=== PATIENT | male | born 1990 | race Caucasian/White ===

== ENCOUNTER 2017-06-02 08:40 | Emergency (ER) | payer BC, MEDICAID, OTHER ==
[2017-06-02] MEDS ORDERED: Ondansetron 4 MG/2 ML SDV IVPUSH PRN (08:56)
[2017-06-02] MEDS ORDERED: Lactated Ringers 1,000 ML IV SCH (09:00)
[2017-06-02] MEDS ORDERED: Insulin Regular, Human 100 Units/ML 10 ML Vial IV ONE (09:13)
[2017-06-02 09:22] LABS: CHLORIDE,CL 90 mEq/L (98-106); SODIUM,NA 131 mEq/L (136-145)
[2017-06-02] MEDS ORDERED: Sodium Chloride 0.9% 50 ML ONE (09:27)
[2017-06-02 09:35] LABS: O2 DELIVERY DEVICE ROOM AIR; PCO2 ARTERIAL 25 mm/Hg0 (35-45)
[2017-06-02 09:36] LABS: BICARBONATE,ARTERIAL 8.3 mm/L (22.0-26.0); O2 SATURATION ARTERIAL 96 % (95-98); PO2 ARTERIAL 106 mm/Hg (80-100)
[2017-06-02 10:14] VITALS: BP 122/66
[2017-06-02] MEDS ORDERED: Sodium Chloride 0.9% 1,000 ML IV SCH (10:15)
--- NOTE | 2017-06-02 10:44 | EDM.PDOC ---
ED HPI GENERAL MEDICAL PROBLEM - General Chief Complaint: Gastrointestinal Problem Stated Complaint: nausea, vomiting, increased BS Time Seen by Provider: 06/02/17 08:55 Source of Information: Reports: Patient - History of Present Illness INITIAL COMMENTS - FREE TEXT/NARRATIVE: Patient is a type 1 diabetic, and has not taken his unsulin in several days. Has been having severe N/V for 24 hours. Onset: Today, Gradual Duration: Hour(s):, Day(s): Severity: Severe Improves with: Reports: None Worsens with: Reports: None Generalized Pain Score (Numeric/FACES): 7 - Related Data Allergies Allergy/AdvReac Type Severity Reaction Status Date / Time No Known Allergies Allergy Verified 09/12/14 23:14 Home Meds: Home Meds Insulin Glarg,Human.Rec.Analog [Lantus] 35 units SQ BEDTIME 09/12/14 [History] Insulin Lispro [HumaLOG] 1 unit SQ ASDIRECTED 09/12/14 [History] Past Medical History Endocrine/Metabolic History: Reports: Diabetes, Type I Social & Family History - Tobacco Use Smoking Status *Q: Current Every Day Smoker Years of Tobacco use: 10 Packs/Tins Daily: 1 - Caffeine Use Caffeine Use: Reports: None - Recreational Drug Use Recreational Drug Use: Yes Drug Use in Last 12 Months: Yes Recreational Drug Type: Reports: Marijuana/Hashish, Methamphetamine ED ROS GENERAL - Review of Systems Review Of Systems: See Below Constitutional: Reports: Malaise, Weakness, Fatigue HEENT: Reports: No Symptoms Respiratory: Reports: No Symptoms Cardiovascular: Reports: No Symptoms Endocrine: Reports: High Glucose : Reports: No Symptoms Musculoskeletal: Reports: No Symptoms Skin: Reports: No Symptoms Neurological: Reports: No Symptoms Psychiatric: Reports: No Symptoms Hematologic/Lymphatic: Reports: No Symptoms ED EXAM, GI/ABD - Physical Exam Exam: See Below Text/Narrative:: A thin 27 year old male with numerous abrasions and bruises noted, He is voming continuously. Serum glucose is 680 Exam Limited By: Uncooperative General Appearance: Alert Ears: Normal External Exam Nose: Normal Inspection Throat/Mouth: Normal Inspection Head: Atraumatic Neck: Normal Inspection Respiratory/Chest: No Respiratory Distress Cardiovascular: Normal Peripheral Pulses GI/Abdominal: Normal Bowel Sounds Neurological: Alert, Oriented Skin Exam: Warm Course - Vital Signs Last Recorded V/S: Last Vital Signs Temp 97.7 F 07/09/17 08:51 Pulse 114 H 06/02/17 08:51 Resp 16 06/02/17 08:51 BP 122/66 06/02/17 10:13 Pulse Ox 100 06/02/17 10:13 - Orders/Labs/Meds Orders: Active Orders 24 hr Category Date Time Status Insulin Regular, Human [NovoLIN R] 100 unit Med 06/02/17 10:15 Active Sodium Chloride 0.9% [Normal Saline] 99 ml IV TITRATE Ondansetron [Zofran] Med 06/02/17 08:56 Active 4 mg IVPUSH Q6H PRN Sodium Chloride 0.9% [Normal Saline] 1,000 ml Med 06/02/17 10:15 Active IV ASDIRECTED Medication Orders Insulin Human Regular 100 unit (/ Sodium Chloride) 100 mls @ 3 mls/hr IV TITRATE JERAMIE; 3 UNITS/HR PRN Reason: Protocol Last Admin: 06/02/17 09:45 Dose: 3 units/hr, 3 mls/hr Sodium Chloride (Normal Saline) 1,000 mls @ 999 mls/hr IV ASDIRECTED JERAMIE Last Admin: 06/02/17 10:12 Dose: 999 mls/hr Ondansetron HCl (Zofran) 4 mg IVPUSH Q6H PRN PRN Reason: Nausea Last Admin: 06/02/17 09:08 Dose: 4 mg Labs: Laboratory Tests 06/02/17 06/02/17 06/02/17 Range/Units 08:55 08:55 08:55 WBC 20.8 H* (5.0-10.0) 10^3/uL RBC 5.56 (4.50-6.00) 10^6/uL Hgb 16.7 (14.0-18.0) g/dL Hct 48.1 (40.0-54.0) % MCV 86.5 (82.0-94.0) fL MCH 30.0 (27.0-32.0) pg MCHC 34.7 (33.0-38.0) g/dL RDW Coeff of Khari 11.6 (11.0-15.0) % Plt Count 327 (150-400) 10^3/uL Add Manual Diff Yes Neutrophils % (Manual) 92 H (35-85) % Lymphocytes % (Manual) 4 L (21-55) % Monocytes % (Manual) 4 (2-12) % Absolute Neutrophils 19.14 H (1.80-7.00) 10^3/uL Lymphocytes # (Manual) 0.83 L (1.00-4.80) 10^3/uL Monocytes # (Manual) 0.83 H (0.00-0.80) 10^3/uL Toxic Granulation 1+ slight H (NOT SEEN) ABG pH (7.35-7.45) ABG pCO2 (35-45) mm/Hg0 ABG pO2 (80-100) mm/Hg ABG HCO3 (22.0-26.0) mm/L ABG O2 Saturation (95-98) % ABG Base Excess (-2.0-3.0) O2 Delivery Device Sodium 131 L (136-145) mEq/L Potassium 6.3 H* D (3.5-5.0) mEq/L Chloride 90 L (98-106) mEq/L Carbon Dioxide 11 L (21-32) mmol/L BUN 34 H (7-18) mg/dL Creatinine 2.0 H D (0.7-1.3) mg/dL Est Cr Clr Drug Dosing 52.92 mL/min Estimated GFR (MDRD) 40 L (>=60) mL/min Glucose 680 H* D (75-99) mg/dL Calcium 9.6 (8.4-10.1) mg/dL Magnesium 2.6 H (1.8-2.4) mg/dL Total Bilirubin 0.9 (0.0-1.0) mg/dL AST 24 (15-37) U/L ALT 36 (12-78) U/L Alkaline Phosphatase 133 H (46-116) U/L C-Reactive Protein < 0.2 L (0.2-0.8) mg/dL Total Protein 9.0 H (6.4-8.2) g/dL Albumin 5.1 H (3.4-5.0) g/dL Urine Color (YELLOW) Urine Appearance (CLEAR) Urine pH (4.5-8.0) Ur Specific [place] (1.003-1.020) Urine Protein (NEGATIVE) mg/dL Urine Glucose (UA) (NEGATIVE) mg/dL Urine Ketones (NEGATIVE) mg/dL Urine Occult Blood (NEGATIVE) Urine Nitrite (NEGATIVE) Urine Bilirubin (NEGATIVE) Urine Urobilinogen (0.2-1.0) EU/dL Ur Leukocyte Esterase (NEGATIVE) Urine RBC (0-5) /HPF Urine WBC (0-5) /HPF Ur Squamous Epith Cells (NOT SEEN) /HPF Urine Opiates Screen Negative (NEGATIVE) Ur Oxycodone Screen Negative (NEGATIVE) Urine Methadone Screen Negative (NEGATIVE) Ur Barbiturates Screen Negative (NEGATIVE) U Tricyclic Antidepress Negative (NEGATIVE) Ur Phencyclidine Scrn Negative (NEGATIVE) Ur Amphetamine Screen Negative (NEGATIVE) U Methamphetamines Scrn Positive H (NEGATIVE) Urine MDMA Screen Negative (NEGATIVE) U Benzodiazepines Scrn Negative (NEGATIVE) Urine Cocaine Screen Negative (NEGATIVE) U Marijuana (THC) Screen Negative (NEGATIVE) 06/02/17 06/02/17 06/02/17 Range/Units 08:55 09:12 10:10 WBC (5.0-10.0) 10^3/uL RBC (4.50-6.00) 10^6/uL Hgb (14.0-18.0) g/dL Hct (40.0-54.0) % MCV (82.0-94.0) fL MCH (27.0-32.0) pg MCHC (33.0-38.0) g/dL RDW Coeff of Khari (11.0-15.0) % Plt Count (150-400) 10^3/uL Add Manual Diff Neutrophils % (Manual) (35-85) % Lymphocytes % (Manual) (21-55) % Monocytes % (Manual) (2-12) % Absolute Neutrophils (1.80-7.00) 10^3/uL Lymphocytes # (Manual) (1.00-4.80) 10^3/uL Monocytes # (Manual) (0.00-0.80) 10^3/uL Toxic Granulation (NOT SEEN) ABG pH 7.14 L (7.35-7.45) ABG pCO2 25 L (35-45) mm/Hg0 ABG pO2 106 H (80-100) mm/Hg ABG HCO3 8.3 L (22.0-26.0) mm/L ABG O2 Saturation 96 (95-98) % ABG Base Excess -21.0 L (-2.0-3.0) O2 Delivery Device Room air Sodium 133 L (136-145) mEq/L Potassium 5.6 H (3.5-5.0) mEq/L Chloride 94 L (98-106) mEq/L Carbon Dioxide 11 L (21-32) mmol/L BUN 35 H (7-18) mg/dL Creatinine 1.7 H (0.7-1.3) mg/dL Est Cr Clr Drug Dosing 62.26 mL/min Estimated GFR (MDRD) 48 L (>=60) mL/min Glucose 566 H* (75-99) mg/dL Calcium 9.0 (8.4-10.1) mg/dL Magnesium (1.8-2.4) mg/dL Total Bilirubin (0.0-1.0) mg/dL AST (15-37) U/L ALT (12-78) U/L Alkaline Phosphatase (46-116) U/L C-Reactive Protein (0.2-0.8) mg/dL Total Protein (6.4-8.2) g/dL Albumin (3.4-5.0) g/dL Urine Color Yellow (YELLOW) Urine Appearance Clear (CLEAR) Urine pH 5.0 (4.5-8.0) Ur Specific [place] 1.024 H (1.003-1.020) Urine Protein Trace H (NEGATIVE) mg/dL Urine Glucose (UA) 500 H (NEGATIVE) mg/dL Urine Ketones >=160 H (NEGATIVE) mg/dL Urine Occult Blood Small H (NEGATIVE) Urine Nitrite Negative (NEGATIVE) Urine Bilirubin Small H (NEGATIVE) Urine Urobilinogen 0.2 (0.2-1.0) EU/dL Ur Leukocyte Esterase Negative (NEGATIVE) Urine RBC 0-5 (0-5) /HPF Urine WBC Not seen (0-5) /HPF Ur Squamous Epith Cells Occasional H (NOT SEEN) /HPF Urine Opiates Screen (NEGATIVE) Ur Oxycodone Screen (NEGATIVE) Urine Methadone Screen (NEGATIVE) Ur Barbiturates Screen (NEGATIVE) U Tricyclic Antidepress (NEGATIVE) Ur Phencyclidine Scrn (NEGATIVE) Ur Amphetamine Screen (NEGATIVE) U Methamphetamines Scrn (NEGATIVE) Urine MDMA Screen (NEGATIVE) U Benzodiazepines Scrn (NEGATIVE) Urine Cocaine Screen (NEGATIVE) U Marijuana (THC) Screen (NEGATIVE) Meds: Medications Generic Name Dose Route Start Last Admin Trade Name Freq PRN Reason Stop Dose Admin Insulin Human Regular 100 unit 100 mls @ 3 mls/hr 06/02/17 10:15 06/02/17 09: 45 / Sodium Chloride IV 3 units/hr TITRATE JERAMIE 3 mls/hr Protocol Administration 3 UNITS/HR Sodium Chloride 1,000 mls @ 999 mls/hr 06/02/17 10:15 06/02/17 10:12 Normal Saline IV 999 mls/hr ASDIRECTED JERAMIE Administration Ondansetron HCl 4 mg 06/02/17 08:56 06/02/17 09:08 Zofran IVPUSH 4 mg Q6H PRN Administration Nausea Discontinued Medications Generic Name Dose Route Start Last Admin Trade Name Freq PRN Reason Stop Dose Admin Lactated Ringer's 1,000 mls @ 999 mls/hr 06/02/17 09:00 06/02/17 09:05 Ringers, Lactated IV 999 mls/hr ASDIRECTED JERAMIE Administration Sodium Chloride Confirm 06/02/17 09:27 Normal Saline Administered 06/02/17 09:28 Dose 50 mls @ as directed .ROUTE .[facility] ONE Insulin Human Regular 100 unit 100 mls @ 0.5 mls/hr 06/02/17 10:15 / Sodium Chloride IV TITRATE JERAMIE Protocol 0.5 UNITS/HR Insulin Human Regular 5 unit 06/02/17 09:13 06/02/17 09:54 Novolin R IV 06/02/17 09:14 5 unit ONETIME ONE Administration Protocol Departure - Departure Time of Disposition: 10:42 (Iv normal saline bolus of 2 liers given IV insulin drip started at 3 units per hour. ABGs show acidosis. I spoke iwth Dr. Montague at [facility] in [place] who agreed to accept patient in the TCU For DKA) Disposition: Admitted As Inpatient 65 Condition: Serious Clinical Impression: DKA (diabetic ketoacidoses) - Discharge Information Referrals: Casa Gan MD [Primary Care Provider] - Forms: ED Department Discharge - My Orders Last 24 Hours: My Active Orders 06/02/17 08:56 Ondansetron [Zofran] 4 mg IVPUSH Q6H PRN 06/02/17 10:15 Insulin Regular, Human [NovoLIN R] 100 unit Sodium Chloride 0.9% [Normal Saline] 99 ml IV TITRATE Sodium Chloride 0.9% [Normal Saline] 1,000 ml IV ASDIRECTED - Assessment/Plan Last 24 Hours: My Active Orders 06/02/17 08:56 Ondansetron [Zofran] 4 mg IVPUSH Q6H PRN 06/02/17 10:15 Insulin Regular, Human [NovoLIN R] 100 unit Sodium Chloride 0.9% [Normal Saline] 99 ml IV TITRATE Sodium Chloride 0.9% [Normal Saline] 1,000 ml IV ASDIRECTED
== END 2017-06-02 12:30 ==
LOC: CC.ED 08:40
DX: E10.10 Type 1 diabetes mellitus with ketoacidosis without coma (principal); F17.210 Nicotine dependence, cigarettes, uncomplicated; Z79.4 Long term (current) use of insulin
CPT/HCPCS: 36415; 36600; 80048; 80053; 80305; 81001; 82803; 83735; 85025; 86140; 96361; 96374; 99285; J2405; J7030; J7120; 96365; 96366; 96376; J1815-GY

== ENCOUNTER 2018-10-17 09:15 | Emergency (ER) | payer MEDICAID ==
[2018-10-17] MEDS ORDERED: Glucagon,Human Recombinant 1 MG Vial ONE (09:17)
[2018-10-17] MEDS ORDERED: Glucose Gel 15 GM in 37.5 GM Tube ONE (09:18)
[2018-10-17] MEDS ORDERED: Sodium Chloride 0.9% 1,000 ML ONE (09:26)
[2018-10-17] MEDS ORDERED: Sodium Chloride 0.9% 1,000 ML IV ONE (09:36)
[2018-10-17] MEDS ORDERED: Glucagon,Human Recombinant 1 MG Vial IVPUSH ONE (09:38)
--- NOTE | 2018-10-17 10:06 | EDM.PDOC ---
ED HPI GENERAL MEDICAL PROBLEM - General Chief Complaint: General Stated Complaint: "I think he has a low blood sugar" Time Seen by Provider: 10/17/18 09:51 Source of Information: Reports: Family History Limitations: Reports: Altered Mental Status, Combative/Threatening - History of Present Illness INITIAL COMMENTS - FREE TEXT/NARRATIVE: Patient brought in by mother and father with report of "low blood sugar". They report that this morning he was difficult to arouse. He has a history of IDDM so the parents checked his BGL and found it to be 39. They gave the patient some juice, dressed him, and drove him to the ER. He was given glucagon by [employer] and his BGL raised to 112. Despite these interventions, the patient continues to be very somnolent, slow to respond, and belligerent when responding to questions. [facility] reports that she found a smoking pipe with an unknown white substance in it in the patient's room. She reports that he has struggled with methamphetamine addiction in the past and thinks that he may have relapsed. The patient adamantly denies this. He is yelling at his parents, cursing, and belligerent. Onset: Unknown/Unsure Location: Reports: Generalized Severity: Severe - Related Data Allergies Allergy/AdvReac Type Severity Reaction Status Date / Time No Known Allergies Allergy Verified 10/17/18 10:08 Home Meds: Home Meds Insulin Glarg,Human.Rec.Analog [Lantus] 30 units SQ BID 09/12/14 [History] Insulin Lispro [HumaLOG] 1 unit SQ ASDIRECTED 09/12/14 [History] Past Medical History Endocrine/Metabolic History: Reports: Diabetes, Type I Social & Family History - Caffeine Use Caffeine Use: Reports: None ED ROS GENERAL - Review of Systems Review Of Systems: See Below Constitutional: Denies: Fever, Chills HEENT: Denies: Vision Change Respiratory: Denies: Shortness of Breath, Wheezing, Cough Cardiovascular: Denies: Chest Pain, Palpitations, Syncope Endocrine: Reports: Low Glucose GI/Abdominal: Denies: Abdominal Pain, Diarrhea, Nausea, Vomiting : Denies: Dysuria, Flank Pain Musculoskeletal: Denies: Neck Pain Skin: Denies: Rash, Lesions Neurological: Reports: Other (denies neurological symptoms) Psychiatric: Reports: Other (denies SI/ HI/ AVH) Hematologic/Lymphatic: Reports: No Symptoms Immunologic: Reports: No Symptoms ED EXAM, GENERAL - Physical Exam Exam: See Below Free Text/Narrative:: exam limited by patient's behavior. he is yelling, cursing, and belligerent. Exam Limited By: Combative/Threatening General Appearance: Lethargic, Obtunded, Moderate Distress Eye Exam: Bilateral Eye: EOMI, PERRL Throat/Mouth: Normal Inspection Head: Atraumatic, Normocephalic Neck: Normal Inspection, Supple, Non-Tender, Full Range of Motion Respiratory/Chest: No Respiratory Distress, Lungs Clear, Normal Breath Sounds, No Accessory Muscle Use, Chest Non-Tender Cardiovascular: Normal Peripheral Pulses, Regular Rate, Rhythm Peripheral Pulses: 2+: Radial (L), Radial (R) GI/Abdominal: Soft, Non-Tender Back Exam: No: CVA Tenderness (L), CVA Tenderness (R) Extremities: Normal Inspection, Normal Range of Motion, Non-Tender, No Pedal Edema, Normal Capillary Refill Neurological: Alert, CN II-XII Intact, Slow to Respond, Other (oriented to self. does not know date, only day of week. does not know what city his in. knows the state.) Psychiatric: Other (yelling, cursing, belligerent when aroused. somnolent and slow to respond otherwise.) Skin Exam: Warm, Dry, Intact, Normal Color, No Rash Lymphatic: No Adenopathy Course - Vital Signs Last Recorded V/S: Last Vital Signs Temp 36.0 C 10/17/18 10:05 Pulse 62 10/17/18 10:05 Resp 16 10/17/18 10:05 BP 140/72 10/17/18 10:05 Pulse Ox 100 10/17/18 10:05 - Orders/Labs/Meds Orders: Active Orders 24 hr Category Date Time Status UA W/MICROSCOPIC [URIN] Stat Lab 10/17/18 10:40 Results Labs: Laboratory Tests 10/17/18 10/17/18 10/17/18 Range/Units 09:48 09:48 10:35 WBC 8.5 (5.0-10.0) 10^3/uL RBC 5.27 (4.50-6.00) 10^6/uL Hgb 15.1 (14.0-18.0) g/dL Hct 42.7 (40.0-54.0) % MCV 81.0 L (82.0-94.0) fL MCH 28.7 (27.0-32.0) pg MCHC 35.4 (33.0-38.0) g/dL RDW Coeff of Khari 11.9 (11.0-15.0) % Plt Count 257 (150-400) 10^3/uL Neut % (Auto) 55.3 (35-85) % Lymph % (Auto) 33.5 (10-55) % [place] % (Auto) 8.0 (0-16) % Eos % (Auto) 2.8 (0-5) % Baso % (Auto) 0.4 (0-3) % Neut # (Auto) 4.72 (1.80-7.00) 10^3/uL Lymph # (Auto) 2.86 (1.00-4.80) 10^3/uL [place] # (Auto) 0.68 (0.00-0.80) 10^3/uL Eos # (Auto) 0.24 (0.00-0.45) 10^3/uL Baso # (Auto) 0.03 10^3/uL Sodium 143 (136-145) mEq/L Potassium 3.5 D (3.5-5.0) mEq/L Chloride 106 (98-106) mEq/L Carbon Dioxide 27 D (21-32) mmol/L BUN 16 D (7-18) mg/dL Creatinine 0.8 D (0.7-1.3) mg/dL Est Cr Clr Drug Dosing TNP Estimated GFR (MDRD) > 60 (>=60) mL/min Glucose 86 D (75-99) mg/dL Calcium 8.6 (8.4-10.1) mg/dL Total Bilirubin 0.5 (0.0-1.0) mg/dL AST 19 (15-37) U/L ALT 28 (12-78) U/L Alkaline Phosphatase 84 (46-116) U/L Total Protein 7.1 (6.4-8.2) g/dL Albumin 3.6 (3.4-5.0) g/dL Urine Color (YELLOW) Urine Appearance (CLEAR) Urine pH (4.5-8.0) Ur Specific [place] (1.003-1.020) Urine Protein (NEGATIVE) mg/dL Urine Glucose (UA) (NEGATIVE) mg/dL Urine Ketones (NEGATIVE) mg/dL Urine Occult Blood (NEGATIVE) Urine Nitrite (NEGATIVE) Urine Bilirubin (NEGATIVE) Urine Urobilinogen (0.2-1.0) EU/dL Ur Leukocyte Esterase (NEGATIVE) Urine Opiates Screen Negative (NEGATIVE) Ur Oxycodone Screen Negative (NEGATIVE) Urine Methadone Screen Negative (NEGATIVE) Ur Barbiturates Screen Negative (NEGATIVE) U Tricyclic Antidepress Negative (NEGATIVE) Ur Phencyclidine Scrn Negative (NEGATIVE) Ur Amphetamine Screen Positive H (NEGATIVE) U Methamphetamines Scrn Positive H (NEGATIVE) Urine MDMA Screen Positive H (NEGATIVE) U Benzodiazepines Scrn Negative (NEGATIVE) Urine Cocaine Screen Negative (NEGATIVE) U Marijuana (THC) Screen Positive H (NEGATIVE) 10/17/18 Range/Units 10:40 WBC (5.0-10.0) 10^3/uL RBC (4.50-6.00) 10^6/uL Hgb (14.0-18.0) g/dL Hct (40.0-54.0) % MCV (82.0-94.0) fL MCH (27.0-32.0) pg MCHC (33.0-38.0) g/dL RDW Coeff of Khari (11.0-15.0) % Plt Count (150-400) 10^3/uL Neut % (Auto) (35-85) % Lymph % (Auto) (10-55) % [place] % (Auto) (0-16) % Eos % (Auto) (0-5) % Baso % (Auto) (0-3) % Neut # (Auto) (1.80-7.00) 10^3/uL Lymph # (Auto) (1.00-4.80) 10^3/uL [place] # (Auto) (0.00-0.80) 10^3/uL Eos # (Auto) (0.00-0.45) 10^3/uL Baso # (Auto) 10^3/uL Sodium (136-145) mEq/L Potassium (3.5-5.0) mEq/L Chloride (98-106) mEq/L Carbon Dioxide (21-32) mmol/L BUN (7-18) mg/dL Creatinine (0.7-1.3) mg/dL Est Cr Clr Drug Dosing Estimated GFR (MDRD) (>=60) mL/min Glucose (75-99) mg/dL Calcium (8.4-10.1) mg/dL Total Bilirubin (0.0-1.0) mg/dL AST (15-37) U/L ALT (12-78) U/L Alkaline Phosphatase (46-116) U/L Total Protein (6.4-8.2) g/dL Albumin (3.4-5.0) g/dL Urine Color Yellow (YELLOW) Urine Appearance Clear (CLEAR) Urine pH 6.0 (4.5-8.0) Ur Specific [place] 1.020 (1.003-1.020) Urine Protein 30 H (NEGATIVE) mg/dL Urine Glucose (UA) 100 H (NEGATIVE) mg/dL Urine Ketones Trace H (NEGATIVE) mg/dL Urine Occult Blood Negative (NEGATIVE) Urine Nitrite Negative (NEGATIVE) Urine Bilirubin Negative (NEGATIVE) Urine Urobilinogen 0.2 (0.2-1.0) EU/dL Ur Leukocyte Esterase Negative (NEGATIVE) Urine Opiates Screen (NEGATIVE) Ur Oxycodone Screen (NEGATIVE) Urine Methadone Screen (NEGATIVE) Ur Barbiturates Screen (NEGATIVE) U Tricyclic Antidepress (NEGATIVE) Ur Phencyclidine Scrn (NEGATIVE) Ur Amphetamine Screen (NEGATIVE) U Methamphetamines Scrn (NEGATIVE) Urine MDMA Screen (NEGATIVE) U Benzodiazepines Scrn (NEGATIVE) Urine Cocaine Screen (NEGATIVE) U Marijuana (THC) Screen (NEGATIVE) Meds: Medications Discontinued Medications Generic Name Dose Route Start Last Admin Trade Name Andre PRN Reason Stop Dose Admin Dextrose Confirm 10/17/18 09:18 10/17/18 10:11 Glutose 15 Administered 10/17/18 09:19 Not Given Dose 15 gm .ROUTE .STK-MED ONE Glucagon Confirm 10/17/18 09:17 10/17/18 10:10 Glucagen Administered 10/17/18 09:18 Not Given Dose 1 mg .ROUTE .STK-MED ONE Glucagon 1 mg 10/17/18 09:38 10/17/18 09:36 Glucagen IVPUSH 10/17/18 09:39 1 mg ONETIME ONE Administration Sodium Chloride 1,000 mls @ 999 mls/hr 10/17/18 09:36 10/17/18 09:50 Normal Saline IV 10/17/18 10:36 999 mls/hr .BOLUS ONE Administration Sodium Chloride Confirm 10/17/18 09:26 10/17/18 10:13 Normal Saline Administered 10/17/18 09:27 Not Given Dose 1,000 mls @ as directed .ROUTE .STK-MED ONE Departure - Departure Time of Disposition: 10:50 Disposition: Home, Self-Care 01 Condition: Good Clinical Impression: Hypoglycemia, Drug abuse, amphetamine type - Discharge Information *PRESCRIPTION DRUG MONITORING PROGRAM REVIEWED*: Not Applicable *COPY OF PRESCRIPTION DRUG MONITORING REPORT IN PATIENT [place]UN[place]: Not Applicable Instructions: Stimulant Use Disorder-Methamphetamines, Hypoglycemia Forms: ED Department Discharge Additional Instructions: REST, HYDRATE, STOP USING AMPHETAMINES, FOLLOW UP WITH YOUR PRIMARY CARE DOCTOR WITHIN 3-5 DAYS, GO TO THE CLOSEST ER IF NEW OR WORSE SYMPTOMS. - Problem List Review Problem List Initiated/Reviewed/Updated: Yes - My Orders Last 24 Hours: My Active Orders 10/17/18 10:40 UA W/MICROSCOPIC [URIN] Stat - Assessment/Plan Last 24 Hours: My Active Orders 10/17/18 10:40 UA W/MICROSCOPIC [URIN] Stat Assessment:: Hypoglycemia Drug abuse Labs return grossly unremarkable. Utox positive for amphetamines, THC, and MDMA. The patient began to maintain behavioral control after UA results discussed. Somnolence ameliorated and the patient's orientation returned to normal. Advised patient to rest, hydrate, stop using drugs, fu with PCP in 3-5 days, go to closest ER if change or worse. Patient and family at bedside report understanding and agreement with plan. DC home stable in care of parents.
[2018-10-17 10:14] LABS: CHLORIDE,CL 106 mEq/L (98-106); SODIUM,NA 143 mEq/L (136-145)
[2018-10-17 10:18] VITALS: BP 140/72
== END 2018-10-17 11:00 | disposition home or self-care (01) ==
LOC: CC.ED 09:15
DX: E10.649 Type 1 diabetes mellitus with hypoglycemia without coma (principal); F15.129 Other stimulant abuse with intoxication, unspecified
CPT/HCPCS: 36415; 80053; 80305; 81001; 85025; 96365; 96375; 99285; J1610; J7030